=== PATIENT | male | born 1990 | race Caucasian/White ===

== ENCOUNTER 2018-02-19 00:19 | Emergency (ER) | payer OTHER ==
[~2018-02-19] VITALS: Ht 172.7 cm; Wt 97.5 kg
[2018-02-19 05:00] VITALS: BP 143/78
== END 2018-02-19 05:01 | disposition home or self-care (01) ==
LOC: EME 00:19
DX: R10.13 Epigastric pain (principal); R07.9 Chest pain, unspecified; Z88.0 Allergy status to penicillin; Z88.2 Allergy status to sulfonamides
CPT/HCPCS: 71046; 71250; 99281; 99283